=== PATIENT | female | born 1980 | race Caucasian/White ===

== ENCOUNTER 2021-08-29 02:06 | Emergency (ER) | payer BC ==
[~2021-08-29] VITALS: Ht 162.6 cm; Wt 79.8 kg
[2021-08-29 02:30] VITALS: BP_SYST 130
[2021-08-29] MEDS ORDERED: ONDANSETRON HCL 4 MG/2 ML VIAL IVP ONE (06:45)
[2021-08-29] MEDS ORDERED: NACL 0.9% 1,000 ML IV ONE (06:45)
--- NOTE | 2021-08-29 06:45 | NUR ---
issued orders for patient
[2021-08-29 07:47] LABS: BASOPHILS % (AUTO) 0.3 % (0.0-2.0); EOSINOPHILS # (AUTO) 0.1 K/uL (0.0-0.4); EOSINOPHILS % (AUTO) 2.3 % (0.0-4.0); HEMATOCRIT 43.3 % (36-48); HEMOGLOBIN 14.4 g/dL (12.0-16.0); LYMPHOCYTES # (AUTO) 0.9 K/uL (1.0-5.5); LYMPHOCYTES % (AUTO) 19.4 % (20.5-51.5); MEAN CORPUSCULAR HEMOGLOBIN 29 pg (27-31); MEAN CORPUSCULAR HGB CONC 33 % (32-36); MEAN CORPUSCULAR VOLUME 86 fL (79.0-98.0); MONOCYTES # (AUTO) 0.3 K/uL (0.0-1.0); MONOCYTES % (AUTO) 5.3 % (1.7-9.3); NEUTROPHILS # (AUTO) 3.4 K/uL (1.8-7.7); NEUTROPHILS % (AUTO) 72.7 % (40.0-70.0); PLATELET COUNT (AUTO) 230 K/uL (130-430); RED BLOOD CELL COUNT(AUTO) 5.01 MIL/uL (4.2-6.2); RED CELL DISTRIBUTION WIDTH 14.4 % (9.0-15.0); WHITE BLOOD COUNT (AUTO) 4.7 K/uL (4.8-10.8)
[2021-08-29 07:48] LABS: CALCIUM 8.8 mg/dL (8.4-11.0); CREATININE 0.8 mg/dL (0.55-1.30)
[2021-08-29 07:54] LABS: ALBUMIN 3.8 g/dL (3.4-4.8); TOTAL BILIRUBIN 0.6 mg/dL (0.0-1.0)
--- NOTE | 2021-08-29 08:49 | NUR ---
Patient to ER bed 1 to gown for evaluation. Side rails up. Report given to Clarissa BRUNO.
[2021-08-29] MEDS ORDERED: ONDANSETRON HCL 4 MG/2 ML VIAL ONE (09:46)
--- NOTE | 2021-08-29 10:02 | NUR ---
pt was driven to er by her in private vihecle, she is ambulatory.assessed pt at bed side. pt experiencing nausea and vomitting since yesterday afternoon. pt also experiencing abdomnal cramping and diarrhea for past two days. pt resting comfortably in bed with bed locked and rails up. 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
[2021-08-29] MEDS ORDERED: DICY10CA13 PO (10:10)
[2021-08-29] MEDS ORDERED: ONDA-8 TL (10:10)
[2021-08-29] MEDS ORDERED: LOPERAMIDE HCL 2 MG CAPSULE PO ONE (10:30)
--- NOTE | 2021-08-29 11:01 | NUR ---
Patient given written and verbal discharge instructions and verbalizes understanding. ER Dr Leroy MARTIN discussed with patient the results and treatment provided. Patient in stable condition. ID arm band removed. IV catheter removed intact and dressing applied, no active bleeding. Rx of dicyclomine hcl and ondansetro hcl given. Patient educated on pain management and to follow up with PMD. Pain Scale . Opportunity for questions provided and answered. Medication side effect fact sheet provided.
[2021-08-29 11:04] VITALS: BP_SYST 140
== END 2021-08-29 11:04 | disposition home or self-care (01) ==
LOC: SED 02:06
DX: R11.2 Nausea with vomiting, unspecified (principal); R19.7 Diarrhea, unspecified; Z79.899 Other long term (current) drug therapy
CPT/HCPCS: 36415; 76642; 80053; 83605; 83690; 84703; 85025; 96361; 96374; 99284; J2405; J7030